=== PATIENT | female | born 1950 | race Caucasian/White ===

== ENCOUNTER 2017-02-09 20:42 | Emergency (ER) | payer MEDICARE, MEDICAID ==
[~2017-02-09] VITALS: Ht 162.6 cm; Wt 61.2 kg
[~2017-02-09 20:42] MED LIST: ASPI81CH43 GT; CHOL400C7 PO; GABA-494 PO; GABA300C8 PO; HCTZ25T GT; LOSA25TA9 PO; NORT25CA GT; OMEP20CA5 PO
[2017-02-09 21:41] VITALS: BP 154/70
== END 2017-02-10 00:54 | disposition home or self-care (01) ==
LOC: ER 20:50
DX: B37.0 Candidal stomatitis (principal); J44.9 Chronic obstructive pulmonary disease, unspecified; F17.210 Nicotine dependence, cigarettes, uncomplicated